=== PATIENT | male | born 1940 | race Caucasian/White ===

== ENCOUNTER → 2017-12-06 | Outpatient (CLI) | payer OTHER ==
[~2017-12-06] MED LIST: IOPAMIDOL (ISOVUE-300) 150 ML BTL ONE
== END ==
LOC: FIMAGING 13:35
PROVIDERS: ATTEND Specialist
DX: N32.89 Other specified disorders of bladder (principal)
CPT/HCPCS: 82565-PO; Q9967

== ENCOUNTER → 2018-11-23 | Outpatient (CLI) | payer OTHER | LOC: FIMAGING 07:27 | PROVIDERS: ATTEND Emergency Medicine | DX: R59.1 Generalized enlarged lymph nodes (principal) ==